=== PATIENT | male | born 1995 | race Caucasian/White ===

== ENCOUNTER 2017-06-01 01:28 | Emergency (ER) | payer OTHER ==
[~2017-06-01] VITALS: Ht 182.9 cm; Wt 78.9 kg
[2017-06-01 01:34] VITALS: TEMP 37.1; Ht 182.9 cm; Wt 78.9 kg
[2017-06-01] MEDS ORDERED: DESV100T PO (01:54)
[2017-06-01] MEDS ORDERED: XYLOCAINE 1%/SOD BICARB 20 ML VIAL INFIL ONE (02:00)
[2017-06-01 02:59] VITALS: BP 122/73; PULSE 95; O2SAT 98
--- NOTE | 2017-06-02 01:19 | EMERGENCY ROOM VISIT NOTE ---
ED Visit Note First contact with patient: 01:47 CHIEF COMPLAINT: Finger laceration HISTORY OF PRESENT ILLNESS: This 22-year-old male patient presents to the emergency department after cutting the left third finger while cutting vegetables at home this evening. The injury occurred about one hour ago. The bleeding has not stopped. Denies weakness or numbness of the finger. The patient has full range of motion of the fingers. The patient rates the pain as dull and 1/10. The patient denies any other injuries. The patient's tetanus shot is reportedly up to date. REVIEW OF SYSTEMS: A 6 system review of systems was completed with positives and pertinent negatives listed in the HPI. ALLERGIES: No known allergies MEDICATIONS: No chronic medications PMH: Otherwise healthy SOCIAL HISTORY: Lives locally PHYSICAL EXAM: Vital Signs: Reviewed Nurse's notes, vital signs stable. GENERAL : White male, in no acute distress, well developed, well nourished. SKIN: There is a the shaped 3.0 cm long laceration on the distal lateral aspect of the left 3rd finger. The edges gape apart with traction. There is no foreign material in the wound and it looks clean. There is no significant bleeding. No deep structures such as tendons, bones, or significant blood vessels are seen in the base of the wound. Extension and flexion of the finger is full and strong. Full range of motion of the wrist and other fingers. Capillary refill less than 2 seconds. Normal sensation to light and sharp touch. EMERGENCY DEPARTMENT COURSE: I examined the patient. Verbal consent was obtained to perform the procedure. Using sterile technique the wound was cleansed with Betadine. 3 ml of 1% buffered lidocaine was used to perform a digital block to anesthetize the patient. The area was sterilely draped. Once the patient was anesthetized, the wound was copiously irrigated under pressure with sterile saline. The wound was explored and there were no deep structures injured. The laceration was repaired using 4 simple interrupted 5-0 nylon sutures. The patient tolerated the procedure well. Hemostasis was achieved. The area was cleaned with sterile saline and dressed with bacitracin ointment and bandage. The patient was discharged home in good condition. Current/Historical Medications Scheduled Desvenlafaxine Succinate Er (Pristiq), 100 MG PO QAM Allergies Coded Allergies: No Known Allergies (Unverified , 06/01/17) Vital Signs Date Time Temp Pulse Resp B/P (MAP) Pulse Ox O2 Delivery O2 Flow Rate FiO2 06/01/17 02:59 95 18 122/73 98 06/01/17 01:34 37.1 110 18 146/78 96 Room Air Medications Administered Medications (Trade) Dose Ordered Sig/Tasha Route Start Time Stop Time Status Last Admin Dose Admin Lidocaine HCl (Buffered Lidocaine 1% Inj) 20 ml NOW ONCE INFIL 06/01/17 02:00 06/01/17 02:01 DC 06/01/17 02:01 20 ML Departure Information Impression Primary Impression: Laceration of finger Dispostion Home / Self-Care Condition GOOD Referrals No Doctor, Assigned (PCP) Forms HOME CARE DOCUMENTATION FORM, IMPORTANT VISIT INFORMATION Patient Instructions My [facility] Additional Instructions Keep wound clean and dry. Do not allow any crusting or dried blood to accumulate on sutures. If this occurs, use a mild soap/water on a Q-tip to clean the wound. Do not use Peroxide to clean the wound as this can delay healing Use an antibiotic ointment like Bacitracin for 3-4 days, then let wound dry. You may bathe and shower as normal, but DO NOT SOAK the wound. Suture removal in about 8-10 days with your Family Doctor or in the ER. Return sooner for any signs of infection, increasing redness, swelling, or drainage.
== END 2017-06-01 02:57 | disposition home or self-care (01) ==
LOC: C.EDB 01:29
DX: S61.213A Laceration without foreign body of left middle finger without damage to nail, initial encounter (principal); W45.8XXA Other foreign body or object entering through skin, initial encounter

== ENCOUNTER 2017-06-15 15:41 | Emergency (ER) | payer OTHER ==
[~2017-06-15] VITALS: Ht 182.9 cm; Wt 81.4 kg
[~2017-06-15 15:41] MED LIST: DESV100T PO
[2017-06-15 15:42] VITALS: BP 144/79; PULSE 99; TEMP 36.4; O2SAT 100; Ht 182.9 cm; Wt 81.4 kg
--- NOTE | 2017-06-15 15:55 | EMERGENCY ROOM VISIT NOTE ---
ED Visit Note First contact with patient: 15:47 CHIEF COMPLAINT: Suture removal left third finger HISTORY of present illness: This 22-year-old male patient returns to the ED today for removal of sutures that were placed 14 days ago into his left third finger. The patient states 4 days ago he went to [facility] to get the sutures removed but he was told that they were not ready that it looks slightly infected so they placed him on 5 days of antibiotics. The patient has been compliant with the antibiotics. He states the wound looks better without any drainage today. REVIEW OF SYSTEMS: 6 system review was performed and was negative unless stated otherwise in history of present illness. PMH: The patient is healthy; there is no significant medical or surgical history. SOCIAL HISTORY: Patient is a [employer] student. The patient denies any tobacco use but admits to occasional alcohol use. PHYSICAL EXAM: Vital Signs: Were reviewed Reviewed Nurse's notes. GEN.: 22-year -old male appears in no acute distress. MENTAL Status: Alert and oriented 3. LEFT THIRD FINGER: There is a sutured wound on the distal phalanx with no signs of infection. There is no erythema, swelling, or tenderness. EMERGENCY DEPARTMENT COURSE: The sutures were removed without any difficulty and there was no separation of the wound edges. DIAGNOSIS: Healing left third finger laceration and suture removal DISCHARGE INSTRUCTIONS AND TREATMENT: Wash any remaining crusts off of the wound today and resume your normal activities. Complete antibiotic treatment as directed by [facility]. Current/Historical Medications Scheduled Desvenlafaxine Succinate Er (Pristiq), 100 MG PO QAM Allergies Coded Allergies: No Known Allergies (Unverified , 06/01/17) Vital Signs Date Time Temp Pulse Resp B/P (MAP) Pulse Ox O2 Delivery O2 Flow Rate FiO2 06/15/17 15:42 36.4 99 18 144/79 100 Room Air Departure Information Referrals No Doctor, Assigned (PCP) Patient Instructions [facility]
[2017-06-15] MEDS ORDERED: ALPR0.25 PO (15:59)
== END 2017-06-15 16:12 | disposition home or self-care (01) ==
LOC: C.EDB 15:41 → C.EDD 16:12
DX: S61.213D Laceration without foreign body of left middle finger without damage to nail, subsequent encounter (principal); X58.XXXD Exposure to other specified factors, subsequent encounter